=== PATIENT | male | born 1970 | race Caucasian/White ===

== ENCOUNTER 2021-04-06 14:16 | Emergency (ER) | payer BC ==
[2021-04-06 15:10] LABS: HEMOGLOBIN 17.9 gm/dl (14.0-17.5); RED BLOOD COUNT 5.39 M/UL (4.20-5.50); WHITE BLOOD COUNT 17.3 K/UL (4.5-11.0)
[2021-04-06 15:57] LABS: BUN/CREATININE RATIO 14 (0-10)
[2021-04-06] MEDS ORDERED: AUGMENTIN 875-1 EACH PO (17:54)
[2021-04-06] MEDS ORDERED: CIPRO500 MG PO (18:24)
[2021-04-06] MEDS ORDERED: FLAGYL 250 MG250 MG GT (18:24)
== END 2021-04-06 18:48 | disposition home or self-care (01) ==
LOC: ER1 14:16
DX: R10.9 Unspecified abdominal pain (principal); D72.829 Elevated white blood cell count, unspecified; R11.2 Nausea with vomiting, unspecified; E07.9 Disorder of thyroid, unspecified; Z90.49 Acquired absence of other specified parts of digestive tract; I10 Essential (primary) hypertension
CPT/HCPCS: 80053; 81001; 82550; 82553; 83690; 83874; 84484; 85025; 93005; 96374; 96375; 96376; 99284; J1335; J2270; J2405; Q9967

== ENCOUNTER → 2021-04-18 | Outpatient (CLI) | payer BC ==
[~2021-04-18] MED LIST: AUGMENTIN 875-1 EACH PO; CIPRO500 MG PO; FLAGYL 250 MG250 MG GT
== END ==
LOC: KOH-I 09:28
DX: R07.2 Precordial pain (principal)
CPT/HCPCS: 71046

== ENCOUNTER → 2021-11-08 | Outpatient (CLI) | payer BC | LOC: KOH-I 08:10 | DX: M25.541 Pain in joints of right hand (principal); M25.542 Pain in joints of left hand; M18.9 Osteoarthritis of first carpometacarpal joint, unspecified | CPT/HCPCS: 73130 ==